=== PATIENT | female | born 1965 | race African-American/Black ===

== ENCOUNTER → 2021-08-17 | Outpatient (CLI) | payer MEDICARE, MEDICAID ==
[~2021-08-17] VITALS: Ht 165.1 cm; Wt 82.1 kg
[~2021-08-17] MED LIST: LIDOCAINE HCL 1% 20ML VIAL (Pyxis) INJ ONE
[2021-08-17 11:16] LABS: GLUCOSE CSF 62 mg/dL (41-75)
== END | disposition home or self-care (01) ==
LOC: ANGIO 07:33
PROVIDERS: ATTEND Psychiatry & Neurology Neurology
DX: G35 Multiple sclerosis (principal); Z79.899 Other long term (current) drug therapy; Z20.822 Contact with and (suspected) exposure to COVID-19; Z88.0 Allergy status to penicillin
CPT/HCPCS: 62328; 82040; 82042; 82784; 82945; 83873; 83916; 84157; 87426; J3490